=== PATIENT | male | born 1955 | race Two or more races ===

== ENCOUNTER 2023-06-03 10:36 | Emergency (ER) | payer OTHER ==
[~2023-06-03] VITALS: Ht 188 cm; Wt 107.0 kg
[2023-06-03 10:41] VITALS: BP 140/86; PULSE 78; RESP 16; TEMP 98.4; O2SAT 96
== END 2023-06-03 10:55 | disposition left against medical advice (07) ==
LOC: ER 10:36
DX: M25.519 Pain in unspecified shoulder (principal); Z13.9 Encounter for screening, unspecified
CPT/HCPCS: 99281